=== PATIENT | male | born 1995 | race Caucasian/White ===

== ENCOUNTER 2020-09-27 18:19 | Emergency (ER) | payer MEDICAID ==
[~2020-09-27] VITALS: Ht 190.5 cm; Wt 81.8 kg
[2020-09-27 18:27] VITALS: BP 109/76; PULSE 86; TEMP 98.4
[2020-09-27] MEDS ORDERED: FLEXERIL 1010 MG/TAB PO ×2 (19:25→20:12)
[2020-09-27] MEDS ORDERED: NAPROSYN500 MG PO ×2 (19:25→20:12)
== END 2020-09-27 19:35 | disposition home or self-care (01) ==
LOC: COL.ER 18:19
DX: S29.9XXA Unspecified injury of thorax, initial encounter (principal); Z87.891 Personal history of nicotine dependence; V49.40XA Driver injured in collision with unspecified motor vehicles in traffic accident, initial encounter

== ENCOUNTER 2020-09-30 20:00 | Emergency (ER) | payer MEDICAID ==
[~2020-09-30] VITALS: Ht 190.5 cm; Wt 81.8 kg
[~2020-09-30 20:00] MED LIST: FLEXERIL 1010 MG/TAB PO; NAPROSYN500 MG PO
[2020-09-30 20:08] VITALS: TEMP 97.4
[2020-09-30] MEDS ORDERED: MOTRIN 800800 MG/TAB PO (20:57)
[2020-09-30] MEDS ORDERED: NORCO 325 MG-51 TAB PO (20:57)
[2020-09-30] MEDS ORDERED: FLEXERIL5 MG PO (20:57)
[2020-09-30 21:04] VITALS: BP 121/70; PULSE 94
== END 2020-09-30 21:07 | disposition home or self-care (01) ==
LOC: COL.ER 20:00
DX: S29.9XXA Unspecified injury of thorax, initial encounter (principal); F17.210 Nicotine dependence, cigarettes, uncomplicated; V89.2XXA Person injured in unspecified motor-vehicle accident, traffic, initial encounter
CPT/HCPCS: J1885; J2360